=== PATIENT | female | born 1980 ===

== ENCOUNTER 2022-08-08 10:31 | Emergency (ER) | payer MEDICAID ==
[~2022-08-08] VITALS: Ht 148.6 cm; Wt 61.4 kg
[2022-08-08 16:00] VITALS: BP 190/111
[2022-08-08] MEDS ORDERED: LIDOCAINE 2%/EPI 1:100,000 inj. Multi-dose 20 ML VIAL SQ ONE (16:15)
[2022-08-08] MEDS ORDERED: bacitracin 15gm ointment TP ONE (16:15)
== END 2022-08-08 17:34 | disposition home or self-care (01) ==
LOC: ER 10:32
DX: S01.112A Laceration without foreign body of left eyelid and periocular area, initial encounter (principal); X58.XXXA Exposure to other specified factors, initial encounter; Y93.89 Activity, other specified; Y92.89 Other specified places as the place of occurrence of the external cause; Y99.8 Other external cause status
CPT/HCPCS: 12011; 99282; A6449